=== PATIENT | male | born 1950 | race Caucasian/White ===

== ENCOUNTER 2022-05-08 07:39 | Outpatient (CLI) | payer MEDICARE, SELFPAY ==
--- NOTE | ~2022-05-08 | CT_ITS ---
EXAMINATION: CT abdomen pelvis wo con DATE: 05/08/2022 08:00 INDICATION: Microscopic hematuria TECHNIQUE: Computed tomography (CT) of the abdomen and pelvis was performed without intravenous contr ast. The dose-length product was 576.50 mGy-cm. Automated exposure control and iterative reconstructi on technique were employed. COMPARISON: None. FINDINGS: Lung bases are unremarkable. Heart size normal. No significant pleural or pericardial effus ion. There is atherosclerosis of the aorta without aneurysm. There are mildly prominent mesenteric ly mph nodes with groundglass opacification of the mesentery in the upper abdomen, consistent with scler osing mesenteritis. There are calcified granulomas of the liver and spleen. There are small low-density lesions in the li terrance, too small to characterize, although statistically likely benign. The pancreas, adrenal glands ar e unremarkable. There is a 1.3 cm exophytic right renal cyst posteriorly. There is a 1 cm cyst anteri ryan in the right kidney. There is a punctate nonobstructing right renal stone. There is focal cortic al thinning posterior laterally in the left kidney. There are parapelvic cysts of the left kidney. No left renal stones. No ureteral stones or hydronephrosis. Bladder is decompressed. Nonobstructive bow el gas pattern. Colonic diverticulosis without evidence for diverticulitis. No free air or free fluid . No lytic or blastic lesions. There is moderate-severe lumbar spondylosis. Gallbladder is present. IMPRESSION: 1. Punctate 1-2 mm nonobstructing right renal stone. No ureteral stones or hydronephrosis. 2: Groundglass density in the mesentery with associated mesenteric lymph nodes which are mildly enlar ged, consistent with sclerosing mesenteritis. Reviewed, dictated and finalized at location A. IMPRESSION: 1. Punctate 1-2 mm nonobstructing right renal stone. No ureteral stones or hydr onephrosis. 2: Groundglass density in the mesentery with associated mesenteric lymph nodes which are mildly enlarged, consistent with sclerosing mesenteritis.
== END 2022-05-08 07:40 | disposition home or self-care (01) ==
LOC: ANHIMG 07:44
PROVIDERS: PCP Internal Medicine; Visit Provider Internal Medicine
DX: R31.29 Other microscopic hematuria (principal); N20.0 Calculus of kidney; R59.0 Localized enlarged lymph nodes
CPT/HCPCS: 74176

== ENCOUNTER 2023-06-10 10:53 | Outpatient (CLI) | payer MEDICARE, SELFPAY | END 2023-06-10 10:54 | disposition home or self-care (01) | LOC: ANHAUDASC 10:54 | PROVIDERS: PCP Internal Medicine; Visit Provider Internal Medicine | DX: H91.90 Unspecified hearing loss, unspecified ear (principal) | CPT/HCPCS: 92557; 92567 ==

== ENCOUNTER 2023-07-01 07:30 | Outpatient (RCR) | payer MEDICARE, SELFPAY | END 2023-09-14 23:59 | disposition home or self-care (01) | LOC: ANHAUDASC 07:30 | PROVIDERS: PCP Internal Medicine; Visit Provider Internal Medicine | DX: Z46.1 Encounter for fitting and adjustment of hearing aid (principal) | CPT/HCPCS: 99199; V5261 ==

== ENCOUNTER → 2025-02-12 11:35 | Outpatient (REF) | payer MEDICARE, SELFPAY ==
--- NOTE | 2025-02-12 11:35 | S_PTH ---
PATIENT: Jose C Murray LOC: [facility] U#:[id number] AGE/SX: 75/M ROOM: RE02/12/[address]: Mikel Park MD : 1950 BED: DIS: SPEC #: [id number] RECD: 02/12/25 13:11 STATUS: YO FERRIS #: [id number] BLANCA: 02/12/25 11:[address]: Mikel Park DEPT: [facility] [place] Surgical RECD BY: Morenita Becerril ENTERED: 02/12/25 13:11 SP TYPE: Surgical OTHR DR: Christophe Mckeon MD Tissues: A - Skin Procedures: P63 Pas with Diastase Hematoxylin and Eosin Stain Periodic Acid Ritesh Gross and Microscopic Level 4 DELMY-EP4 CD 34 CK 20 CK 7
--- OUTSIDE RECORDS SUMMARY | 2025-02-12 11:38 | XMS_ITS | Clinical Summary ---
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 Name Role Phone Unavailable Primary Care Provider Unavailabl e Social History Tobacco Use Types Packs/Day Years Used Date Smoking Tobacco: Never Assessed Sex and Gender Information Value Date Recorded Sex Assigned at Not on file Legal Sex Male 4:44 PM CDT Gender Identity Not on file Sexual Orientation Not on file Last Filed Vital Signs Vital Sign Reading Time Taken Comments Blood Pressure 130/86 10/20/2016 11:22 AM CDT Pulse 64 10/20/2016 11:22 AM CDT Temperature - - Respiratory Rate - - Oxygen Saturation - - Inhaled Oxygen Concentration - - Weight 126.6 kg (279 lb) 10/20/2016 11:22 AM CDT Height 179.1 cm (5' 10.5) 10/20/2016 11:22 AM C DT Body Mass Index 39.47 10/20/2016 11:22 AM CDT Plan of Treatment Health Maintenance Due Date Last Done Comments Colorectal Cancer Screening Colonoscopy (10 Years) 1950 Hepatitis C 1967 DTaP, Tdap and Td Vaccines ( 1 - Tdap) 1968 Zoster Vaccines (1 of 2) 1999 Pneumococcal Vaccine: 50+ Ye ars (2 of 2 - PPSV23) 04/10/2016 04/10/2015 COVID-19 Vaccine ( - 2023-2 5 season) 2024 RSV Immunization or 60+ Years (1 - 1-dose 75+ series) 2024 Meningococcal B Vaccine Aged Out No l onger eligible based on patient's age to complete this topic Meningococcal Vaccine Aged Out No riaz milan eligible based on patient's age to complete this topic RSV Immunizations Under 20 Months Aged Out No longer eligible based on patient's age to complete this topic
--- OUTSIDE RECORDS SUMMARY | 2025-02-12 11:38 | XMS_ITS | Encounter Summary ---
Author Organization [facility] Address [address] [place] [id number] Care Team Providers Care Acid Bath Mixer Name Role Phone Unavailable Primary Care Provider Unavailabl e Encounter Details Date Type Department Care Team (Late st Contact Info) Description 08/22/2003 Abstract [facility] Conversion Md, Generic Conversion, Social History Tobacco Use Types Packs/Day Years Used Date Smoking Tobacco: Never Assessed Sex and Gender Information Value Date Recorded Sex Assigned at Not on file Legal Sex Male 4:44 PM CDT Gender Identity Not on file Sexual Orientation Not on file documented as of this encounter Plan of Treatment Not on file documented as of this encounter Visit Diagnoses Not on filedocumented in this encounter
== END ==
LOC: ANHLAB 11:35
PROVIDERS: PCP Internal Medicine; Visit Provider Plastic Surgery
DX: C44.529 Squamous cell carcinoma of skin of other part of trunk (principal)
CPT/HCPCS: 88305; 88313; 88342

== ENCOUNTER 2025-02-28 07:51 | Outpatient (CLI) | payer MEDICARE, SELFPAY ==
[2025-03-26 11:12] VITALS: BMI 37.5
--- NOTE | 2025-03-26 11:12 | WPDSLEEPSTUD ---
Sleep Study Date of Study: 02/28/25 Ordering Provider: Christophe Mckeon MD Interpreting Physician: Dorothy Christianson MD Sleep Study Type: Split Polysomnogram Height: 1.8 m Weight: 122.016 kg Body Mass Index: 37.5 Neck Circumference (inches): 18 [place]: 5 Reason for Sleep Study atrial fibrillation, Sleep History Jose C Murray is a 74-year-old man with atrial fibrillation. there is a family history of sleep disordered breathing, his father, brother, sister and daughter all have sleep disorders. On January 20, 2024 he had a cardioversion. He rarely awakens from sleep feeling short of breath. He rarely wakes at night with heartburn, belching or coughing.??He rarely snores, never snores loudly enough that others complain. He occasionally has trouble sleeping when he has a cold. He rarely wakes up gasping for breath during the night. He never has breathing problems at night reported to him by others. He rarely sweats excessively at night. He occasionally notices his heart pounding or beating irregularly during the night. He occasionally falls asleep during the day. He rarely falls asleep involuntarily, rarely falls asleep while driving. He never experiences loss of muscle tone with strong emotion. He never has daytime difficulty at work due to excessive sleepiness. He never feels paralyzed on waking or falling asleep. He occasionally experiences vivid dreams upon waking or falling asleep. He never feels afraid of going to sleep. He occasionally has nightmares. He rarely recalls his dreams. He occasionally has thoughts racing through his mind. He rarely feels sad or depressed. He occasionally feels anxiety. He occasionally notices parts of his body jerk. He occasionally kicks during the night. He never feels crawling or aching feelings in his legs. He occasionally feels leg pain at night. He never has morning jaw pain, occasionally grinds his teeth at night. He occasionally feels bothered by pain during the day, rarely is awakened by pain during the night. He occasionally wakes up feeling stiff in the morning, and he occasionally wakes feeling sore or achy. He occasionally awakens with pain in his neck, spine, or joints. Normal bedtime is 9:00 p.m., falling asleep within minutes, waking twice at night to go to the bathroom, returning to sleep in 5 minutes but sometimes taking up to an hour to return to sleep. Wake time is 5:45 a.m. he maintains the same schedule on weekends. He typically gets between 7-8 hours of sleep per night. He takes naps in the day, and after a short 10-15 minute nap, he feels refreshed. most the time he feels good upon waking. He feels better in the morning compared to other times of day. Habits:??Tobacco: Former smoker Caffeine: 1-1/2 cups of coffee daily Alcohol: 2 glasses of wine daily Recreational substances: none PMFSH Past Medical History Medical History Afib Viral illness Vitamin D deficiency BMI 37.0-37.9, adult Hip pain, right ASHD (arteriosclerotic heart disease) Encounter for routine adult health examination without abnormal findings Hearing loss History of renal stone Pre-diabetes BMI 38.0-38.9,adult Encounter for Medicare annual wellness exam Microscopic hematuria Colon cancer screening Prostate cancer screening UTI (urinary tract infection) BMI 39.0-39.9,adult Encounter to establish care 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 Hyperlipidemia BPPV (benign paroxysmal positional vertigo) Benign essential hypertension Surgical History Surgical History S/P cataract surgery Family History Family History Father Hypertension CHF (congestive heart failure) Sibling Throat cancer Heart disease Myocardial infarction Mother Diabetes mellitus Hypertension Renal failure Social History Social History Social History: Caffeine-coffee Smoking status: Former smoker Tobacco type: cigarettes Second hand tobacco smoke exposure: Yes Smoking end date: 04/06/88 Alcohol intake: current Alcohol use details: social ETOH- wine Substance use: never Substance use type: does not use Lack of Transportation: No Lack of Food: Never True Current Housing: I Have Housing Concerned About Future Housing: No Difficulty Paying Gas/Electric Bills: No Difficulty Paying for Meds: No Currently Unemployed: No Education: Master's Degree or Higher Difficulty w/ Childcare or Family Care: No Living arrangements: with family Gender identity (if verbalized by the patient): Male Medications Home Medications ?Medication ?Instructions ?Recorded ?Confirmed ?Type amlodipine 5 mg tablet 5 mg PO DAILY 04/08/22 01/15/25 History aspirin 81 mg tablet,delayed 81 mg PO DAILY 04/08/22 01/15/25 History release (Adult Low Dose Aspirin) atorvastatin 80 mg tablet 80 mg PO DAILY 04/08/22 01/15/25 History azilsartan medoxomil 40 1 tablet PO DAILY 04/08/22 01/15/25 History mg-chlorthalidone 25 mg tablet (Edarbyclor) carvedilol 25 mg tablet 25 mg PO BID 04/08/22 01/15/25 History omega-3 fatty acids-vitamin E cap PO BID 04/08/22 01/15/25 History 1,000 mg capsule potassium chloride 10 mEq 10 meq PO DAILY 03/04/23 01/15/25 History capsule,extended release vitamins A,C,B-zred-htqfqa 2,148 2 tablet PO BID 07/09/23 01/15/25 History mcg-113 mg-45 mg-17.4 mg tablet (PreserVision AREDS) ezetimibe 10 mg tablet See Rx Instructions .Route 05/09/24 01/15/25 Rx .COMPLEX #90 tabs cholecalciferol (vitamin D3) 50 50 mcg PO DAILY 09/13/24 01/15/25 History mcg (2,000 unit) capsule ciprofloxacin HCl 500 mg tablet 500 mg PO Q12H #25 tabs 09/13/24 01/15/25 Rx zolpidem 10 mg tablet 10 mg PO QHS sleep study #1 tablet 01/15/25 01/15/25 Rx apixaban 5 mg tablet (Eliquis) 5 mg PO BID 30 days #180 tabs 03/02/25 Rx Sleep Procedure A split night polysomnogram using the [employer] multi-channel system recorded the standard physiologic parameters including EEG, EOG, submentalis EMG, anterior tibialis EMG, EKG, body position, nasal and oral airflow using nasal pressure sensor and thermistor. Respiratory parameters of chest and abdominal movements were recorded with Respiratory Inductance Plethysmography belts. Oxygen saturation was recorded by pulse oximetry. Video monitoring was also performed. Sleep stages, periodic limb movements, and EEG arousals were scored in 30 second epochs according to the criteria of the AASM Scoring Manual. The Apnea-Hypopnea Index was calculated using CMS guidelines for definition of hypopnea while scoring respiratory events. The patient self-administered Ambien 10 mg at the beginning of the study After the baseline portion the patient met criteria for a titration with an AHI of 14.5 and desaturation to 82%. He started CPAP using a large ResMed Airtouch F20 FFM with and heated humidity, initial pressure was CPAP 5 senna titrated up to CPAP 12 cm. At 12 cm, the patient spent 155.5 minutes in bed, 73 minutes awake, 68.5 minutes in non-REM and 14 minutes in REM. Sleep efficiency was 53.1%. The residual apnea-hypopnea index was 4.4. The lowest saturation was 89%. He had supine REM at CPAP 12 cm. He also had REM at CPAP 10 cm with a higher sleep efficiency of 100% but only spent 10 minutes at CPAP 10 cm. I recommend CPAP 12 cm as his treatment pressure. Sleep Architecture During the diagnostic portion of the study, the total recording time was 174.5 minutes. The total sleep time was 132.0 minutes. Sleep latency was 21.0 minutes. REM latency was 33.5 minutes. Sleep Efficiency was 75.7%. The patient had 11 awakenings for an awakening index of 5.0. Wake after sleep onset time was 21.5 minutes. The patient spent 13.0 minutes, 9.8% of total sleep time in Stage N1. The patient spent 95.0 minutes, 72.0% in Stage N2. The patient spent no time in Stage N3. The patient spent 24.0 minutes, 18.2% in Stage REM sleep. At 12:26:57 AM the patient was placed on PAP treatment and was titrated at pressures ranging from CPAP 5 cm to CPAP 12 cm. During the treatment portion of the study, the total recording time was 296.6 minutes. The total sleep time was 166.0 minutes. Sleep latency was 18.0 minutes. REM latency was 113.0 minutes. Sleep Efficiency was 56.0%. Wake after Sleep Onset time was 112.5 minutes. The patient spent 28.5 minutes, 17.2% of total sleep time in Stage N1. The patient spent 113.0 minutes, 68.1% in Stage N2. The patient spent no time in Stage N3. The patient spent 24.5 minutes, 14.8% in Stage REM. Respiratory Analysis During the diagnostic portion of the study, the patient had 29 hypopneas, 1 obstructive apnea, no mixed apneas, and 2 central apneas for an overall Apnea Hypopnea Index of 14.5 events per hour. The REM Apnea Hypopnea Index was 35.0. The NREM Apnea Hypopnea Index was 10.6. The patient had a Central Apnea Hypopnea Index of 0.9. There were no Respiratory Effort Related Arousals. The Respiratory Disturbance Index is 25.5 events per hour. There was no evidence of Kurt-Edouard Respirations. During the treatment portion of the study, the patient had 25 hypopneas, no obstructive apneas, no mixed apneas, and 5 central apneas for an overall Apnea Hypopnea Index of 10.8 events per hour. The REM Apnea Hypopnea Index was 4.9. The NREM Apnea Hypopnea Index was 11.9. The patient had a Central Apnea Hypopnea Index of 1.8. There were no Respiratory Effort Related Arousals. The Respiratory Disturbance Index is 15.2 events per hour. There was no evidence of Kurt-Edouard Respirations. Arousals During the diagnostic portion of the study, there were a total of 79 arousals for an arousal index of 35.9. There were 12 respiratory arousals for an index of 5.5. There were 49 periodic limb movement arousals for an index of 22.3. There were 3 isolated limb movement arousals for an index of 1.4. There were 15 spontaneous arousals for an index of 6.8. During the treatment portion of the study, there were a total of 62 arousals for an index of 22.4. There were 15 respiratory arousals for an index of 5.4. There were 27 periodic limb movement arousals for an index of 9.8. There were 10 isolated limb movement arousals for an index of 3.6. There were 12 spontaneous arousals for an index of 4.3. Periodic Limb Movements During the diagnostic portion of the study, the patient had 4 isolated limb movements with an index of 1.8. The patient had 255 periodic limb movements with an index of 115.9. The patient had a total of 259 limb movements with a total limb movement index of 117.7. During the treatment portion of the study, the patient had 22 isolated limb movements with an index of 8.0. The patient had 117 periodic limb movements with an index of 42.3. The patient had a total of 139 limb movements with a total limb movement index of 50.2. Oximetry Data During the diagnostic portion of the study, the patient had an average oxygen saturation of 93% in wake with a minimum oxygen saturation of 84% and a maximum oxygen saturation of 98%. The patient had an average oxygen saturation of 90.7% in sleep with a minimum oxygen saturation of 82% and a maximum oxygen saturation of 98%. The patient had 58 oxygen desaturations resulting in an Oxygen Desaturation Index of 26.4. The patient spent 8.8 minutes, 5.1%of total sleep time with an oxygen saturation less than 88%. During the treatment portion of the study, the patient had an average oxygen saturation of 94.8% in wake with a minimum oxygen saturation of 73% and a maximum oxygen saturation of 98%. The patient had an average oxygen saturation of 91.5% in sleep with a minimum oxygen saturation of 88% and a maximum oxygen saturation of 98%. The patient had 50 oxygen desaturations resulting in an Oxygen Desaturation Index of 18.1. The patient spent 0.9 minutes, 0.3% of total sleep time with an oxygen saturation less than 88%. Snoring Profile During the diagnostic portion, snoring was mild and intermittent. At the optimal pressure, snoring resolved. Cardiac Profile During the diagnostic portion of the study, the EKG showed normal sinus rhythm. The average pulse rate was 56 bpm, minimum pulse rate was 47 bpm, maximum pulse rate was 67 bpm. No arrhythmias noted. During the treatment portion of the study, the EKG showed normal sinus rhythm. The average pulse rate was 53 bpm, minimum pulse rate was 48 bpm, maximum pulse rate was 69 bpm without arrhythmia. EEG Profile Unremarkable, no evidence of seizures. Assessment and Plan Assessment and Plan (1) Obstructive sleep apnea: Code(s): G47.33 - Obstructive sleep apnea (adult) (pediatric) Status: Acute Assessment and Plan: This split night sleep study on 02/28/2025 shows mild obstructive sleep apnea with an apnea-hypopnea index of 14.5 and desaturation 82% successfully treated with CPAP 12 cm and a large ResMed AirTouch F20 fullface mask and and heated humidity. At 12 cm, the patient spent 155.5 minutes in bed, 73 minutes awake, 68.5 minutes in non-REM and 14 minutes in REM. Sleep efficiency was 53.1%. The residual apnea-hypopnea index was 4.4. The lowest saturation was 89%. He had supine REM at CPAP 12 cm. He also had REM at CPAP 10 cm with a higher sleep efficiency of 100% but only spent 10 minutes at CPAP 10 cm. I recommend CPAP 12 cm with a large ResMed Airtouch F20 FFM. The patient should be prescribed this ResMed equipment as well as tubing, filters and reservoir. This should be used with all episodes of sleep. Compliance should be reviewed within 31-90 days of starting therapy for usage greater than 4 hours per night greater than 70% of the nights. The patient should be asked about symptoms such as excessive daytime sleepiness, quality of sleep, decreased nocturia, increased mental functioning such as memory, mood, and concentration. BMI is 37. Weight management is advised. Clinical data suggests that weight loss of 10% can reduce the severity of respiratory events and snoring and improve AHI by as much as 25%. The patient occasionally feels a kicks at night but generally does not have uncomfortable feelings in his legs during the evening. He had a large number periodic limb movements especially during the baseline portion. His periodic limb movement index was 115.9, and during treatment was 42.3, improved with elimination of apneas. His limb movement arousal index also improved during treatment. His periodic limb movement arousal index was 22.3 during baseline which is elevated, above 15. During treatment the periodic limb movement arousal index was 9.8, in the normal range. If he is compliant with PAP therapy and still has non restorative sleep consider further questions regarding leg time night movements or restless legs symptoms. Data The data obtained during this sleep study is adequate for interpretation. Certification This sleep study has been reviewed by a board certified sleep medicine physician.
== END 2025-03-01 05:40 | disposition home or self-care (01) ==
LOC: ANHCSM 07:52
PROVIDERS: PCP Internal Medicine; Visit Provider Internal Medicine
DX: G47.10 Hypersomnia, unspecified (principal)
CPT/HCPCS: 95811